=== PATIENT | female | born 1975 | race Caucasian/White ===

== ENCOUNTER 2017-05-17 09:16 | Emergency (ER) | payer MEDICAID ==
[~2017-05-17] VITALS: Wt 72.4 kg
[2017-05-17] MEDS ORDERED: KETOROLAC 30 MG INJ IM STA (11:39)
--- NOTE | 2017-05-17 13:54 | RADRPT ---
PROCEDURE: XR Lumbar Spine. CLINICAL INDICATION: Back pain after heavy lifting. TECHNIQUE: AP, lateral and cone-down lateral view of the lumbar spine were obtained. COMPARISON: No prior studies are available for comparison. FINDINGS: There are 5 lumbar vertebra. The intervertebral disc spaces, neural canal and nerve root foramina ar e unremarkable. There is no evidence of spondylolysis or spondylolisthesis. There is fecal material in the ascending colon and sigmoid colon. IMPRESSION: 1. Unremarkable AP, lateral and cone down views of the lumbosacral spine. RPTAT:AAJJ Physician Stefano Date Time Electronically viewed and signed by Frank Delarosa Physician on 05/17/2017 13:53 JOHNSON/
[2017-05-17] MEDS ORDERED: HYDROCODONE/APAP (5/325) TAB PO ONE (14:00)
[2017-05-17] MEDS ORDERED: TRAM50TA2 PO (14:18)
[2017-05-17] MEDS ORDERED: NAPR-260 PO (14:19)
[2017-05-17] MEDS ORDERED: CYCL-319 PO (14:19)
--- NOTE | 2017-05-17 15:54 | ERD ---
ER Documentation Chief Complaint Chief Complaint back pain since yest s/p working HPI This is a 41-year-old female who presents the emergency department today complaining of left-sided back pain and left leg pain into her buttocks that started yesterday. 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 Patient states that she wears a heavy backpack with a vacuum and has been having some back pain. Denies any dysuria, loss of bowel or bladder control, fevers or chills. ROS All systems reviewed and are negative except as per history of present illness. Medications Home Meds Active Scripts Cyclobenzaprine Hcl* (Cyclobenzaprine Hcl*) 10 Mg Tablet, 10 MG PO QHS, #7 TAB Prov:JULISSA PEDRO PA-C 05/17/17 Naproxen* (Naprosyn*) 500 Mg Tablet, 500 MG PO BID Y for PAIN AND/OR INFLAMMATION, #30 TAB Prov:JULISSA PEDRO PA-C 05/17/17 Tramadol HCl (Tramadol HCl) 50 Mg Tablet, 50 MG PO Q4 Y for PAIN, #20 TAB Prov:JULISSA PEDRO PA-C 05/17/17 Allergies Allergies: Coded Allergies: No Known Allergy (Unverified , 05/17/17) PMhx/Soc Medical and Surgical Hx: pt denies Medical Hx, pt denies Surgical Hx Hx Alcohol Use: No Hx Substance Use: No Hx Tobacco Use: No Smoking Status: Never smoker Physical Exam Vitals Vital Signs Date Time Temp Pulse Resp B/P Pulse Ox O2 Delivery O2 Flow Rate FiO2 05/17/17 09:20 98.1 95 20 152/82 99 Physical Exam Const: NAD Head: Atraumatic Eyes: Normal Conjunctiva ENT: Normal External Ears, Nose and Mouth. Neck: Full range of motion..~ No meningismus. Resp: Clear to auscultation bilaterally Cardio: Regular rate and rhythm, no murmurs Abd: Soft, non tender, non distended. Normal bowel sounds Skin: No petechiae or rashes Back: Lumbar spine midline tenderness and left-sided paraspinal tenderness. Full active range of motion. Negative straight leg raise. Pulses 2+. No CVA tenderness Ext: No cyanosis, or edema Neur: Awake and alert Psych: Normal Mood and Affect Results 24 hrs Laboratory Tests Test 05/17/17 12:55 Bedside Urine pH (LAB) 7.0 Bedside Urine Protein (LAB) Negative Bedside Urine Glucose (UA) Negative Bedside Urine Ketones (LAB) Negative Bedside Urine Blood 2+ Bedside Urine Nitrite (LAB) Negative Bedside Urine Leukocyte Esterase (L Negative Current Medications Medications (Trade) Dose Ordered Sig/Marla Route PRN Reason Start Time Stop Time Status Last Admin Dose Admin Ketorolac Tromethamine (Toradol) 30 mg ONCE STAT IM 05/17/17 11:39 05/17/17 11:41 DC 05/17/17 12:10 Acetaminophen/ Hydrocodone Bitart ([place] (5/325)) 1 tab ONCE ONCE PO 05/17/17 14:00 05/17/17 14:01 DC 05/17/17 14:07 Procedures/MDM This 41-year-old female who presents emergency department today complaining of left-sided back pain and pain into her left leg after lifting something heavy at work yesterday. Patient did have some midline tenderness on physical exam and given her radicular symptoms in her left leg did obtain images. Per the radiology report images of the lumbar spine is unremarkable. Symptoms at this time is consistent with sprain versus strain. Low suspicion for acute fracture or dislocation. Patient is afebrile and otherwise well-appearing. They have no loss of bowel or bladder control. Low suspicion for cauda equina or abscess. Patient was given Toradol here in the emergency department and complaining of pain as patient had to wait a long time. She was then given [place]. Patient will be given a prescription for tramadol, Naprosyn and Flexeril. At this time the patient is stable for discharge and outpatient management. Patient should follow up with their PCP in the next 1-2 days. They may return to the emergency department sooner for any persistent or worsening of symptoms. Patient understood and agreed with the plan. Departure Diagnosis: Primary Impression: Injury of back Encounter type: initial encounter Qualified Code: S39.92XA - Injury of back , initial encounter Condition: Fair Patient Instructions: Back Sprain/Strain Referrals: [facility] Usted se camacho hecho un examen mdico de control que le indica que no est en srini condicin que requiera tratamiento urgente en el Departamento de Emergencia. Un estudio ms profundo y el tratamiento de singh condicin pueden esperar sin ningn riesgo hasta que usted sea atendida/o en el consultorio de singh mdico o srini cl franco. Es responsabilidad suya arreglar srini sonja para el seguimiento del toño. MANEJO DE CONDICIONES NO URGENTES EN EL FUTURO 1) Si usted tiene un mdico de atencin primaria: Usted debera llamar a singh mdico de atencin primaria antes de venir al departamento de emergencia. Despus de las horas de consultorio, singh doctor o singh asociado/a est disponible por telfono. El mdico o enfermero de gemma en el servicio telefnico puede asesorarle por anna medio para atender el problema, o toño contrario se puede programar srini sonja. 2) Si usted no tiene un mdico de atencin primaria: Llame al mdico o clnica de referencia que aparece abajo jackelyn las horas de consultorio para hacer srini sonja para que le vean. CLINICAS: [place] [id number] [phone] [facility] [phone] 7515 [facility]. [facility] [phone] [address] [facility]. [place] [phone] [facility]. [place] [id number] [phone] [facility]. [phone] [address] Additional Instructions: Llame al doctor MAANA y jeff srini SONJA PARA DENTRO DE 1-2 VARGAS.Dgale a la secretaria que nosotros le instruimos hacer esta sonja.Avise o llame si singh condicin se empeora antes de la sonja. Regresa aqui si peor o no mejor. Take tramadol for severe pain otherwise take Naprosyn or Tylenol or Motrin. Take Flexeril for muscle spasms. Take only at night and do not drive while taking this medication. Apply ice and heat intermittently for pain. JULISSA PEDRO PA-C May 17, 2017 15:54
--- NOTE | 2017-05-17 15:54 | ERD ---
ER Documentation Chief Complaint Chief Complaint back pain since yest s/p working HPI This is a 41-year-old female who presents the emergency department today complaining of left-sided back pain and left leg pain into her buttocks that started yesterday. 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 Patient states that she wears a heavy backpack with a vacuum and has been having some back pain. Denies any dysuria, loss of bowel or bladder control, fevers or chills. ROS All systems reviewed and are negative except as per history of present illness. Medications Home Meds Active Scripts Cyclobenzaprine Hcl* (Cyclobenzaprine Hcl*) 10 Mg Tablet, 10 MG PO QHS, #7 TAB Prov:JULISSA PEDRO PA-C 05/17/17 Naproxen* (Naprosyn*) 500 Mg Tablet, 500 MG PO BID Y for PAIN AND/OR INFLAMMATION, #30 TAB Prov:JULISSA PEDRO PA-C 05/17/17 Tramadol HCl (Tramadol HCl) 50 Mg Tablet, 50 MG PO Q4 Y for PAIN, #20 TAB Prov:JULISSA PEDRO PA-C 05/17/17 Allergies Allergies: Coded Allergies: No Known Allergy (Unverified , 05/17/17) PMhx/Soc Medical and Surgical Hx: pt denies Medical Hx, pt denies Surgical Hx Hx Alcohol Use: No Hx Substance Use: No Hx Tobacco Use: No Smoking Status: Never smoker Physical Exam Vitals Vital Signs Date Time Temp Pulse Resp B/P Pulse Ox O2 Delivery O2 Flow Rate FiO2 05/17/17 09:20 98.1 95 20 152/82 99 Physical Exam Const: NAD Head: Atraumatic Eyes: Normal Conjunctiva ENT: Normal External Ears, Nose and Mouth. Neck: Full range of motion..~ No meningismus. Resp: Clear to auscultation bilaterally Cardio: Regular rate and rhythm, no murmurs Abd: Soft, non tender, non distended. Normal bowel sounds Skin: No petechiae or rashes Back: Lumbar spine midline tenderness and left-sided paraspinal tenderness. Full active range of motion. Negative straight leg raise. Pulses 2+. No CVA tenderness Ext: No cyanosis, or edema Neur: Awake and alert Psych: Normal Mood and Affect Results 24 hrs Laboratory Tests Test 05/17/17 12:55 Bedside Urine pH (LAB) 7.0 Bedside Urine Protein (LAB) Negative Bedside Urine Glucose (UA) Negative Bedside Urine Ketones (LAB) Negative Bedside Urine Blood 2+ Bedside Urine Nitrite (LAB) Negative Bedside Urine Leukocyte Esterase (L Negative Current Medications Medications (Trade) Dose Ordered Sig/Marla Route PRN Reason Start Time Stop Time Status Last Admin Dose Admin Ketorolac Tromethamine (Toradol) 30 mg ONCE STAT IM 05/17/17 11:39 05/17/17 11:41 DC 05/17/17 12:10 Acetaminophen/ Hydrocodone Bitart ([place] (5/325)) 1 tab ONCE ONCE PO 05/17/17 14:00 05/17/17 14:01 DC 05/17/17 14:07 Procedures/MDM This 41-year-old female who presents emergency department today complaining of left-sided back pain and pain into her left leg after lifting something heavy at work yesterday. Patient did have some midline tenderness on physical exam and given her radicular symptoms in her left leg did obtain images. Per the radiology report images of the lumbar spine is unremarkable. Symptoms at this time is consistent with sprain versus strain. Low suspicion for acute fracture or dislocation. Patient is afebrile and otherwise well-appearing. They have no loss of bowel or bladder control. Low suspicion for cauda equina or abscess. Patient was given Toradol here in the emergency department and complaining of pain as patient had to wait a long time. She was then given [place]. Patient will be given a prescription for tramadol, Naprosyn and Flexeril. At this time the patient is stable for discharge and outpatient management. Patient should follow up with their PCP in the next 1-2 days. They may return to the emergency department sooner for any persistent or worsening of symptoms. Patient understood and agreed with the plan. Departure Diagnosis: Primary Impression: Injury of back Encounter type: initial encounter Qualified Code: S39.92XA - Injury of back , initial encounter Condition: Fair Patient Instructions: Back Sprain/Strain Referrals: [facility] Usted se camacho hecho un examen mdico de control que le indica que no est en srini condicin que requiera tratamiento urgente en el Departamento de Emergencia. Un estudio ms profundo y el tratamiento de singh condicin pueden esperar sin ningn riesgo hasta que usted sea atendida/o en el consultorio de singh mdico o srini cl franco. Es responsabilidad suya arreglar srini sonja para el seguimiento del toño. MANEJO DE CONDICIONES NO URGENTES EN EL FUTURO 1) Si usted tiene un mdico de atencin primaria: Usted debera llamar a singh mdico de atencin primaria antes de venir al departamento de emergencia. Despus de las horas de consultorio, singh doctor o singh asociado/a est disponible por telfono. El mdico o enfermero de gemma en el servicio telefnico puede asesorarle por anna medio para atender el problema, o toño contrario se puede programar srini sonja. 2) Si usted no tiene un mdico de atencin primaria: Llame al mdico o clnica de referencia que aparece abajo jackelyn las horas de consultorio para hacer srini sonja para que le vean. CLINICAS: [place] [id number] [phone] [facility] [phone] 75[address] [facility]. [facility] [phone] [address] [facility]. [place] [phone] [facility]. [place] [id number] [phone] [facility]. [phone] [address] Additional Instructions: Llame al doctor MAANA y jeff srini SONJA PARA DENTRO DE 1-2 VARGAS.Dgale a la secretaria que nosotros le instruimos hacer esta sonja.Avise o llame si singh condicin se empeora antes de la sonja. Regresa aqui si peor o no mejor. Take tramadol for severe pain otherwise take Naprosyn or Tylenol or Motrin. Take Flexeril for muscle spasms. Take only at night and do not drive while taking this medication. Apply ice and heat intermittently for pain. JULISSA PEDRO PA-C May 17, 2017 15:54
--- NOTE | 2017-05-17 15:54 | ERD ---
ER Documentation Chief Complaint Chief Complaint back pain since yest s/p working HPI This is a 41-year-old female who presents the emergency department today complaining of left-sided back pain and left leg pain into her buttocks that started yesterday. 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 Patient states that she wears a heavy backpack with a vacuum and has been having some back pain. Denies any dysuria, loss of bowel or bladder control, fevers or chills. ROS All systems reviewed and are negative except as per history of present illness. Medications Home Meds Active Scripts Cyclobenzaprine Hcl* (Cyclobenzaprine Hcl*) 10 Mg Tablet, 10 MG PO QHS, #7 TAB Prov:JULISSA PEDRO PA-C 05/17/17 Naproxen* (Naprosyn*) 500 Mg Tablet, 500 MG PO BID Y for PAIN AND/OR INFLAMMATION, #30 TAB Prov:JULISSA PEDRO PA-C 05/17/17 Tramadol HCl (Tramadol HCl) 50 Mg Tablet, 50 MG PO Q4 Y for PAIN, #20 TAB Prov:JULISSA PEDRO PA-C 05/17/17 Allergies Allergies: Coded Allergies: No Known Allergy (Unverified , 05/17/17) PMhx/Soc Medical and Surgical Hx: pt denies Medical Hx, pt denies Surgical Hx Hx Alcohol Use: No Hx Substance Use: No Hx Tobacco Use: No Smoking Status: Never smoker Physical Exam Vitals Vital Signs Date Time Temp Pulse Resp B/P Pulse Ox O2 Delivery O2 Flow Rate FiO2 05/17/17 09:20 98.1 95 20 152/82 99 Physical Exam Const: NAD Head: Atraumatic Eyes: Normal Conjunctiva ENT: Normal External Ears, Nose and Mouth. Neck: Full range of motion..~ No meningismus. Resp: Clear to auscultation bilaterally Cardio: Regular rate and rhythm, no murmurs Abd: Soft, non tender, non distended. Normal bowel sounds Skin: No petechiae or rashes Back: Lumbar spine midline tenderness and left-sided paraspinal tenderness. Full active range of motion. Negative straight leg raise. Pulses 2+. No CVA tenderness Ext: No cyanosis, or edema Neur: Awake and alert Psych: Normal Mood and Affect Results 24 hrs Laboratory Tests Test 05/17/17 12:55 Bedside Urine pH (LAB) 7.0 Bedside Urine Protein (LAB) Negative Bedside Urine Glucose (UA) Negative Bedside Urine Ketones (LAB) Negative Bedside Urine Blood 2+ Bedside Urine Nitrite (LAB) Negative Bedside Urine Leukocyte Esterase (L Negative Current Medications Medications (Trade) Dose Ordered Sig/Marla Route PRN Reason Start Time Stop Time Status Last Admin Dose Admin Ketorolac Tromethamine (Toradol) 30 mg ONCE STAT IM 05/17/17 11:39 05/17/17 11:41 DC 05/17/17 12:10 Acetaminophen/ Hydrocodone Bitart ([place] (5/325)) 1 tab ONCE ONCE PO 05/17/17 14:00 05/17/17 14:01 DC 05/17/17 14:07 Procedures/MDM This 41-year-old female who presents emergency department today complaining of left-sided back pain and pain into her left leg after lifting something heavy at work yesterday. Patient did have some midline tenderness on physical exam and given her radicular symptoms in her left leg did obtain images. Per the radiology report images of the lumbar spine is unremarkable. Symptoms at this time is consistent with sprain versus strain. Low suspicion for acute fracture or dislocation. Patient is afebrile and otherwise well-appearing. They have no loss of bowel or bladder control. Low suspicion for cauda equina or abscess. Patient was given Toradol here in the emergency department and complaining of pain as patient had to wait a long time. She was then given [place]. Patient will be given a prescription for tramadol, Naprosyn and Flexeril. At this time the patient is stable for discharge and outpatient management. Patient should follow up with their PCP in the next 1-2 days. They may return to the emergency department sooner for any persistent or worsening of symptoms. Patient understood and agreed with the plan. Departure Diagnosis: Primary Impression: Injury of back Encounter type: initial encounter Qualified Code: S39.92XA - Injury of back , initial encounter Condition: Fair Patient Instructions: Back Sprain/Strain Referrals: [facility] Usted se camacho hecho un examen mdico de control que le indica que no est en srini condicin que requiera tratamiento urgente en el Departamento de Emergencia. Un estudio ms profundo y el tratamiento de singh condicin pueden esperar sin ningn riesgo hasta que usted sea atendida/o en el consultorio de singh mdico o srini cl franco. Es responsabilidad suya arreglar srini sonja para el seguimiento del toño. MANEJO DE CONDICIONES NO URGENTES EN EL FUTURO 1) Si usted tiene un mdico de atencin primaria: Usted debera llamar a singh mdico de atencin primaria antes de venir al departamento de emergencia. Despus de las horas de consultorio, singh doctor o singh asociado/a est disponible por telfono. El mdico o enfermero de gemma en el servicio telefnico puede asesorarle por anna medio para atender el problema, o toño contrario se puede programar srini sonja. 2) Si usted no tiene un mdico de atencin primaria: Llame al mdico o clnica de referencia que aparece abajo jackelyn las horas de consultorio para hacer srini sonja para que le vean. CLINICAS: [place] [id number] [phone] [facility] [phone] 7515 [facility]. [facility] [phone] [address] [facility]. [place] [phone] [facility] [place] [phone] [facility]. [phone] [address] Additional Instructions: Llame al doctor MAANA y jeff srini SONJA PARA DENTRO DE 1-2 VARGAS.Dgale a la secretaria que nosotros le instruimos hacer esta sonja.Avise o llame si singh condicin se empeora antes de la sonja. Regresa aqui si peor o no mejor. Take tramadol for severe pain otherwise take Naprosyn or Tylenol or Motrin. Take Flexeril for muscle spasms. Take only at night and do not drive while taking this medication. Apply ice and heat intermittently for pain. JULISSA PEDRO PA-C May 17, 2017 15:54
== END 2017-05-17 14:42 | disposition home or self-care (01) ==
LOC: FTE 09:16
DX: S39.92XA Unspecified injury of lower back, initial encounter (principal); X58.XXXA Exposure to other specified factors, initial encounter; Y92.9 Unspecified place or not applicable
CPT/HCPCS: 72100; 81003; 96372; J1885; Z7502; Z7610